=== PATIENT | male | born 1990 | race Hispanic/Latino ===

== ENCOUNTER 2019-03-12 13:04 | Inpatient (IN) | payer SELFPAY ==
[2019-03-12] MEDS ORDERED: Sodium Chloride 0.9% 100 ML ONE (15:12)
[2019-03-12] MEDS ORDERED: diphenhydrAMINE 50 MG/ML VIAL ONE (15:12)
[2019-03-12] MEDS ORDERED: Metoclopramide HCl 10 MG/2 ML VIAL ONE (15:12)
[2019-03-12] MEDS ORDERED: traMADol HCl 50 MG TAB PO PRN (15:18)
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
[2019-03-12 15:40] LABS: #Eosinphils 0.1 thou/uL (0.0-0.7); #Lymphocytes 1.3 thou/uL (1.20-3.40); #Monocytes 1.1 thou/uL (0.11-0.59); #Neutrophils 11.6 thou/uL (1.40-6.50); %Basophils 0.1 % (0.0-1.0); %Eosinophils 0.5 % (0.0-10.0); %Lymphocytes 9.5 % (21.0-51.0); %Monocytes 7.6 % (0.0-10.0); %Neutrophils 82.4 % (42.0-75.0); Hemoglobin 16.2 g/dL (14.0-18.0); Mean Corpuscular HGB CONC 33.8 g/dL (32.0-36.0); Mean Corpuscular Hemoglobin 30.5 pg (27.0-31.0); Mean Corpuscular Volume 90.3 fL (78.0-98.0); Mean Platelet Volume 6.6 fL (7.4-10.4); Platelet Count 279 thou/uL (130-400); RBC Distribution Width 11.4 % (11.5-14.5); Red Blood Cell (RBC) Count 5.31 mill/uL (4.70-6.10); White Blood Cell (WBC) Count 14.1 thou/uL (4.8-10.8)
[2019-03-12 15:59] LABS: Anion Gap 13 mmol/L (10-20); BUN (Urea Nitrogen) 7 mg/dL (8.9-20.6); Calc. Creatinine Clearance 0 mL/min (70-130); Calcium 9.4 mg/dL (7.8-10.44); Carbon Dioxide 27 mmol/L (22-29); Chloride 101 mmol/L (98-107); Estimated GFR-MDRD Greater than 90; Glucose 102 mg/dL (70-105); Phosphorus 3.7 mg/dL (2.3-4.7); Potassium 3.5 mmol/L (3.5-5.1); Sodium 137 mmol/L (136-145)
[2019-03-12] MEDS ORDERED: Communication Order-Pharmacy FS SCH (16:56)
[2019-03-12] MEDS ORDERED: HYDROcodone/Acetaminophen 5/325 mg Tablet PO PRN ×2 (16:56)
[2019-03-12] MEDS ORDERED: Morphine 4 MG/ML VIAL SLOW IVP PRN (16:56)
[2019-03-12] MEDS ORDERED: Bisacodyl 10 MG SUPP PR PRN (16:56)
[2019-03-12] MEDS ORDERED: Milk Of Magnesia 30 ML UDCUP PO PRN (16:56)
[2019-03-12] MEDS ORDERED: Morphine 2 MG/ML SYRINGE IVP PRN (16:56)
[2019-03-12] MEDS: traMADol HCl 50 MG TAB PO SCH ×2 (18:08→23:46)
[2019-03-12] MEDS: Acetaminophen 500 MG TAB PO SCH ×2 (18:09→23:44)
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
[2019-03-12] MEDS: Gabapentin 100 MG CAP PO SCH (20:51)
[2019-03-12] MEDS: Senokot S 8.6-50 MG TAB PO SCH (20:52)
--- NOTE | 2019-03-12 23:03 | PDOC.GSPN ---
Surgery Progress Note: Subj - Subjective Narrative: Pt seen and examined, agree w treatment plan as documented. Surgery Progress Note: Obj - Vital signs Vital signs: Vital Signs - Most Recent Temp Pulse Resp BP Pulse Ox 98.8 F 98 03/12/19 19:27 03/12/19 19:00 Surgery Progress Note: Results - Labs Result Diagrams: 03/12/19 15:28 03/12/19 15:28 Lab results: Laboratory Results - last 24 hr 03/12/19 03/12/19 15:28 15:28 WBC 14.1 H RBC 5.31 Hgb 16.2 Hct 47.9 MCV 90.3 MCH 30.5 MCHC 33.8 RDW 11.4 L Plt Count 279 MPV 6.6 L Neutrophils % 82.4 H Lymphocytes % 9.5 L Monocytes % 7.6 Eosinophils % 0.5 Basophils % 0.1 Neutrophils # 11.6 H Lymphocytes # 1.3 Monocytes # 1.1 H Eosinophils # 0.1 Basophils # 0.0 Sodium 137 Potassium 3.5 Chloride 101 Carbon Dioxide 27 Anion Gap 13 BUN 7 L Creatinine 0.70 Estimated GFR (MDRD) Greater than 90 Glucose 102 Calcium 9.4 Phosphorus 3.7 Magnesium 2.0
[2019-03-13 04:54] LABS: #Eosinphils 0.1 thou/uL (0.0-0.7); #Lymphocytes 2.1 thou/uL (1.20-3.40); #Neutrophils 7.2 thou/uL (1.40-6.50); %Basophils 0.4 % (0.0-1.0); %Lymphocytes 19.8 % (21.0-51.0); %Monocytes 9.3 % (0.0-10.0); %Neutrophils 69.4 % (42.0-75.0); Hemoglobin 15.8 g/dL (14.0-18.0); Mean Corpuscular HGB CONC 33.4 g/dL (32.0-36.0); Mean Corpuscular Hemoglobin 30.2 pg (27.0-31.0); Mean Corpuscular Volume 90.4 fL (78.0-98.0); Mean Platelet Volume 6.9 fL (7.4-10.4); PTT 30.5 SEC (22.9-36.1); Platelet Count 263 thou/uL (130-400); Prothrombin Time 13.2 SEC (12.0-14.7); RBC Distribution Width 11.4 % (11.5-14.5); Red Blood Cell (RBC) Count 5.22 mill/uL (4.70-6.10); White Blood Cell (WBC) Count 10.4 thou/uL (4.8-10.8)
[2019-03-13 05:10] LABS: Phosphorus 4.3 mg/dL (2.3-4.7)
[2019-03-13 05:12] LABS: ALT (SGPT) 35 U/L (8-55); AST (SGOT) 23 U/L (5-34); Albumin 4.4 g/dL (3.5-5.0); Alkaline Phosphatase 73 U/L (40-150); Anion Gap 13 mmol/L (10-20); BUN (Urea Nitrogen) 11 mg/dL (8.9-20.6); Bilirubin, Total 1.1 mg/dL (0.2-1.2); Calc. Creatinine Clearance 146 mL/min (70-130); Calcium 9.8 mg/dL (7.8-10.44); Carbon Dioxide 28 mmol/L (22-29); Chloride 100 mmol/L (98-107); Estimated GFR-MDRD Greater than 90; Globulin 3.1 g/dL (2.4-3.5); Glucose 106 mg/dL (70-105); Potassium 3.9 mmol/L (3.5-5.1); Protein, Total 7.5 g/dL (6.0-8.3); Sodium 137 mmol/L (136-145)
[2019-03-13] MEDS: traMADol HCl 50 MG TAB PO SCH ×2 (05:35→12:29)
[2019-03-13] MEDS: Acetaminophen 500 MG TAB PO SCH ×2 (05:36→12:29)
[2019-03-13 06:31] VITALS: BMI 21.9
[2019-03-13] MEDS ORDERED: Polyethylene Glycol 3350 17 GM Packet PO SCH (09:00)
[2019-03-13] MEDS: Gabapentin 100 MG CAP PO SCH ×2 (09:08→15:10)
[2019-03-13] MEDS: Senokot S 8.6-50 MG TAB PO SCH (09:09)
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
[2019-03-13 15:10] VITALS: TEMP 98.8
== END 2019-03-13 15:53 | disposition home or self-care (01) | DRG 84 ==
LOC: ERS 13:04 → IMCU/EMU 14:38
PROVIDERS: ADMIT Surgery; ATTEND Surgery
DX: S06.2X9A Diffuse traumatic brain injury with loss of consciousness of unspecified duration, initial encounter (principal); Y04.0XXA Assault by unarmed brawl or fight, initial encounter
CPT/HCPCS: 36415; 70450; 80048; 80053; 83735; 84100; 85025; 85610; 85730; 94760; 96374; 96375; G0390; J1200; J2765; J3490